=== PATIENT | male | born 1955 | race Hispanic/Latino ===

== ENCOUNTER 2019-11-13 11:40 | Emergency (ER) | payer SELFPAY ==
[~2019-11-13] VITALS: Ht 162.6 cm; Wt 56.0 kg
[2019-11-13] MEDS ORDERED: KEFLEX500 M1 PO (13:08)
[2019-11-13] MEDS ORDERED: IBUPROFEN600 MG PO (13:08)
[2019-11-13 13:36] VITALS: BP 167/88
== END 2019-11-13 13:45 | disposition home or self-care (01) | DRG 563 ==
LOC: ED 11:40
DX: S93.401A Sprain of unspecified ligament of right ankle, initial encounter (principal); L03.115 Cellulitis of right lower limb; X50.0XXA Overexertion from strenuous movement or load, initial encounter; Y92.009 Unspecified place in unspecified non-institutional (private) residence as the place of occurrence of the external cause

== ENCOUNTER 2019-12-13 19:41 | Observation (INO) | payer SELFPAY ==
[~2019-12-13] VITALS: Ht 162.6 cm; Wt 56.4 kg
[~2019-12-13 19:41] MED LIST: IBUPROFEN600 MG PO; KEFLEX500 M1 PO
[2019-12-13 20:26] LABS: ALKALINE PHOSPHATASE 110 u/l (38-126); BUN 7 mg/dL (8-23); BUN/CREATININE RATIO 11 (12-20 (CALC)); CARBON DIOXIDE 22 mmol/l (22-30); CHLORIDE 94 mmol/l (95-108); CREATININE 0.6 mg/dL (0.7-1.3); GFR > 60 ML/MIN (>=60 (CALC)); GFR FOR AFR.AMER. > 60 ML/MIN (>=60 (CALC)); SGOT/AST 45 u/l (19-48)
[2019-12-13 20:30] LABS: IMMATURE GRANULOCYTES 0.2 % (0.0-5.0); MEAN CELL VOLUME 97.1 fL CALC (80.0-100.0); MEAN CORPUSCULAR HGB 33.1 pG CALC (26.0-32.0); NEUT# 2.29 thou/uL (1.82-7.42); RED BLOOD COUNT 3.84 mill/uL (4.70-6.10); RED CELL DISTRI WIDTH 12.4 % (11.5-15.5)
[2019-12-13 20:33] LABS: HEMATOCRIT 37.3 % (39.0-50.0); HEMOGLOBIN 12.7 g/dl (14.0-18.0)
[2019-12-13 20:42] LABS: ALBUMIN 4.3 g/dL (3.2-5.0); ANION GAP 17 (6-22 (CALC)); BILIRUBIN, TOTAL 0.4 mg/dL (0.0-1.4); SODIUM 129 mmol/l (137-146); TOTAL PROTEIN 7.5 g/dL (6.3-8.2)
[2019-12-13 20:43] LABS: ETHYL ALCOHOL 368 mg/dl (0-30)
[2019-12-14] VITALS (16 sets, daily range): BP systolic 123–146; BP diastolic 60–83
[2019-12-14] MEDS ORDERED: AMOX/K CLAV875 M1 PO (06:40)
[2019-12-14 13:53] LABS: URINE BILIRUBIN - DIPSTICK NEGATIVE (NEGATIVE); URINE BLOOD DIPSTICK NEGATIVE (NEGATIVE); URINE COLOR YELLOW; URINE GLUCOSE - DIPSTICK NEGATIVE (NEGATIVE); URINE KETONE NEGATIVE (NEGATIVE); URINE LEUK ESTERASE NEGATIVE (NEGATIVE); URINE NITRITE - DIPSTICK NEGATIVE (Negative); URINE PROTEIN - DIPSTICK NEGATIVE (NEG-TRACE); URINE SPECIFIC GRAVITY <=1.005; URINE UROBILINOGEN - DIPSTICK 0.2 E.U./dL (0.2)
[2019-12-15] VITALS (8 sets, daily range): BP systolic 133–154; BP diastolic 68–85
[2019-12-15 04:57] LABS: HEMATOCRIT 37.1 % (39.0-50.0); HEMOGLOBIN 12.5 g/dl (14.0-18.0); IMMATURE GRANULOCYTES 0.3 % (0.0-5.0); MEAN CELL VOLUME 97.9 fL CALC (80.0-100.0); MEAN CORPUSCULAR HGB CONC 33.7 g/dL CAL (32.0-36.0); NEUT# 4.99 thou/uL (1.82-7.42); RED BLOOD COUNT 3.79 mill/uL (4.70-6.10); RED CELL DISTRI WIDTH 12.7 % (11.5-15.5)
[2019-12-15 05:35] LABS: ALBUMIN 3.6 g/dL (3.2-5.0); ALKALINE PHOSPHATASE 124 u/l (38-126); BUN 6 mg/dL (8-23); BUN/CREATININE RATIO 12 (12-20 (CALC)); CALCULATED LDLCHOLESTEROL 58 mg/dL (62-129 (CALC)); CARBON DIOXIDE 26 mmol/l (22-30); CHLORIDE 104 mmol/l (95-108); CHOLESTEROL HDL RATIO 1.8 (<4.4 (CALC)); CREATININE 0.5 mg/dL (0.7-1.3); GFR > 60 ML/MIN (>=60 (CALC)); GFR FOR AFR.AMER. > 60 ML/MIN (>=60 (CALC)); HDL CHOLESTEROL 93 mg/dL (>=40); POTASSIUM 3.5 mmol/l (3.5-5.1); SGOT/AST 35 u/l (19-48); TOTAL CHOLESTEROL 168 mg/dl (0-199); TOTAL PROTEIN 6.7 g/dL (6.3-8.2); TOTAL TRIGLYCERIDES 88 mg/dl (30-149); VLDL CHOLESTROL 18 mg/dl (4-45 (CALC))
[2019-12-15 05:43] LABS: ANION GAP 11 (6-22 (CALC)); BILIRUBIN, TOTAL 0.9 mg/dL (0.0-1.4); MAGNESIUM 1.9 mg/dL (1.6-2.3); SODIUM 137 mmol/l (137-146)
[2019-12-16] VITALS (7 sets, daily range): BP systolic 137–177; BP diastolic 78–91
[2019-12-16] MEDS ORDERED: ASPIRIN ADULT L81 M2 PO (08:23)
[2019-12-16] MEDS ORDERED: METOPROLOL SUCC50 MG PO (08:23)
== END 2019-12-16 12:35 | disposition home or self-care (01) | DRG 310 ==
LOC: ED 19:41 → ED-I 12-14 08:11 → ED 12-14 08:28 → ICU 12-14 08:29
PROVIDERS: Nurse Practitioner; ADMIT Internal Medicine; ATTEND Internal Medicine
PROC: 0HQ1XZZ Repair Face Skin, External Approach (ICD-10-PCS; principal; 2019-12-13)
DX: I48.0 Paroxysmal atrial fibrillation (principal); S02.2XXA Fracture of nasal bones, initial encounter for closed fracture; S01.21XA Laceration without foreign body of nose, initial encounter; S50.311A Abrasion of right elbow, initial encounter; F10.229 Alcohol dependence with intoxication, unspecified; I10 Essential (primary) hypertension; Y90.8 Blood alcohol level of 240 mg/100 ml or more; Y92.512 Supermarket, store or market as the place of occurrence of the external cause; W01.0XXA Fall on same level from slipping, tripping and stumbling without subsequent striking against object, initial encounter; Z20.828 Contact with and (suspected) exposure to other viral communicable diseases
CPT/HCPCS: J1650; J3475

== ENCOUNTER 2019-12-24 10:32 | Emergency (ER) | payer SELFPAY ==
[~2019-12-24] VITALS: Ht 167.6 cm; Wt 90.0 kg
[~2019-12-24 10:32] MED LIST changes: +AMOX/K CLAV875 M1 PO; +ASPIRIN ADULT L81 M2 PO; +METOPROLOL SUCC50 MG PO
[2019-12-24 11:45] VITALS: BP 112/64
== END 2019-12-24 11:45 | disposition home or self-care (01) | DRG 950 ==
LOC: ED 10:32
DX: S01.21XD Laceration without foreign body of nose, subsequent encounter (principal); X58.XXXD Exposure to other specified factors, subsequent encounter; I10 Essential (primary) hypertension

== ENCOUNTER 2020-04-09 13:37 | Emergency (ER) | payer SELFPAY ==
[~2020-04-09] VITALS: Ht 167.6 cm; Wt 75.0 kg
[2020-04-09 15:00] LABS: HEMATOCRIT 34.3 % (39.0-50.0); HEMOGLOBIN 11.7 g/dl (14.0-18.0); MEAN CELL VOLUME 97.4 fL CALC (80.0-100.0); MEAN CORPUSCULAR HGB 33.2 pG CALC (26.0-32.0); MEAN CORPUSCULAR HGB CONC 34.1 g/dL CAL (32.0-36.0); NEUT# 2.68 thou/uL (1.82-7.42); RED BLOOD COUNT 3.52 mill/uL (4.70-6.10); RED CELL DISTRI WIDTH 13.5 % (11.5-15.5)
[2020-04-09 15:24] LABS: ALKALINE PHOSPHATASE 83 u/l (38-126); BILIRUBIN, TOTAL 0.6 mg/dL (0.0-1.4); BUN 4 mg/dL (8-23); BUN/CREATININE RATIO 6 (12-20 (CALC)); CARBON DIOXIDE 24 mmol/l (22-30); CREATININE 0.6 mg/dL (0.7-1.3); ETHYL ALCOHOL 296 mg/dl (0-30); GFR > 60 ML/MIN (>=60 (CALC)); GFR FOR AFR.AMER. > 60 ML/MIN (>=60 (CALC)); POTASSIUM 3.7 mmol/l (3.5-5.1); SGOT/AST 46 u/l (19-48); TOTAL PROTEIN 7.8 g/dL (6.3-8.2)
[2020-04-09 15:34] LABS: ALBUMIN 4.4 g/dL (3.2-5.0); ANION GAP 17 (6-22 (CALC)); CHLORIDE 90 mmol/l (95-108); SODIUM 127 mmol/l (137-146)
[2020-04-09] MEDS ORDERED: AMOX/K CLAV875 M1 PO (18:45)
[2020-04-09 23:45] VITALS: BP 133/69
== END 2020-04-09 23:45 | disposition home or self-care (01) | DRG 156 ==
LOC: ED 13:37
PROC: 0HQ1XZZ Repair Face Skin, External Approach (ICD-10-PCS; principal; 2020-04-09)
DX: S01.21XA Laceration without foreign body of nose, initial encounter (principal); S02.2XXA Fracture of nasal bones, initial encounter for closed fracture; F10.129 Alcohol abuse with intoxication, unspecified; I10 Essential (primary) hypertension; W10.9XXA Fall (on) (from) unspecified stairs and steps, initial encounter; Y92.009 Unspecified place in unspecified non-institutional (private) residence as the place of occurrence of the external cause

== ENCOUNTER 2021-06-08 17:45 | Emergency (ER) | payer SELFPAY ==
[~2021-06-08] VITALS: Ht 167.6 cm; Wt 54.0 kg
[2021-06-08] VITALS (12 sets, daily range): BP systolic 108–150; BP diastolic 63–82
[2021-06-08 20:03] LABS: HEMATOCRIT 33.5 % (39.0-50.0); MEAN CELL VOLUME 98.5 fL CALC (80.0-100.0); MEAN CORPUSCULAR HGB 32.4 pG CALC (26.0-32.0); MEAN CORPUSCULAR HGB CONC 32.8 g/dL CAL (32.0-36.0); NEUT# 3.06 thou/uL (1.82-7.42); RED BLOOD COUNT 3.4 mill/uL (4.70-6.10); RED CELL DISTRI WIDTH 13.7 % (11.5-15.5)
[2021-06-08 20:08] LABS: ALBUMIN 4.1 g/dL (3.2-5.0); ALKALINE PHOSPHATASE 90 u/l (38-126); AMYLASE 98 u/l (30-110); ANION GAP 13 (6-22 (CALC)); BILIRUBIN, TOTAL 0.3 mg/dL (0.0-1.4); BUN 8 mg/dL (8-23); BUN/CREATININE RATIO 11 (12-20 (CALC)); CARBON DIOXIDE 21 mmol/l (22-30); CHLORIDE 100 mmol/l (95-108); CREATININE 0.7 mg/dL (0.7-1.3); GFR > 60 ML/MIN (>=60 (CALC)); GFR FOR AFR.AMER. > 60 ML/MIN (>=60 (CALC)); LIPASE 110 u/l (23-300); POTASSIUM 3.5 mmol/l (3.5-5.1); SGOT/AST 35 u/l (19-48); SODIUM 131 mmol/l (137-146); TOTAL PROTEIN 7.1 g/dL (6.3-8.2)
[2021-06-08 20:20] LABS: MYOGLOBIN 104 ng/mL (0 - 121)
[2021-06-09 03:23] LABS: URINE BILIRUBIN - DIPSTICK NEGATIVE (NEGATIVE); URINE BLOOD DIPSTICK NEGATIVE (NEGATIVE); URINE COLOR YELLOW; URINE GLUCOSE - DIPSTICK NEGATIVE (NEGATIVE); URINE KETONE NEGATIVE (NEGATIVE); URINE LEUK ESTERASE NEGATIVE (NEGATIVE); URINE PH 5.5 (4.5-8.0); URINE PROTEIN - DIPSTICK NEGATIVE (NEG-TRACE); URINE SPECIFIC GRAVITY <=1.005; URINE UROBILINOGEN - DIPSTICK 0.2 E.U./dL (0.2)
[2021-06-09 03:25] LABS: URINE NITRITE - DIPSTICK NEGATIVE (Negative)
[2021-06-09] MEDS ORDERED: KEFLEX500 MG PO (04:16)
== END 2021-06-09 07:09 | disposition home or self-care (01) | DRG 605 ==
LOC: ED 17:45
PROVIDERS: Emergency Medicine
PROC: 0HQ1XZZ Repair Face Skin, External Approach (ICD-10-PCS; principal; 2021-06-08)
DX: S01.81XA Laceration without foreign body of other part of head, initial encounter (principal); S01.21XA Laceration without foreign body of nose, initial encounter; S02.2XXA Fracture of nasal bones, initial encounter for closed fracture; F10.129 Alcohol abuse with intoxication, unspecified; I10 Essential (primary) hypertension; W01.0XXA Fall on same level from slipping, tripping and stumbling without subsequent striking against object, initial encounter

== ENCOUNTER 2021-07-08 12:10 | Emergency (ER) | payer SELFPAY ==
[~2021-07-08] VITALS: Ht 167.6 cm; Wt 59.0 kg
[~2021-07-08 12:10] MED LIST changes: +KEFLEX500 MG PO
[2021-07-08 12:23] VITALS: BP 156/90
[2021-07-08 12:30] VITALS: BP 140/81
[2021-07-08 12:35] VITALS: BP 140/81
== END 2021-07-08 12:42 | disposition home or self-care (01) | DRG 950 ==
LOC: ED 12:10
DX: S01.81XD Laceration without foreign body of other part of head, subsequent encounter (principal); S02.2XXD Fracture of nasal bones, subsequent encounter for fracture with routine healing; X58.XXXD Exposure to other specified factors, subsequent encounter

== ENCOUNTER 2021-12-09 19:22 | Emergency (ER) | payer SELFPAY ==
[~2021-12-09] VITALS: Ht 167.6 cm; Wt 65.0 kg
[2021-12-09 20:16] LABS: HEMATOCRIT 32.3 % (39.0-50.0); HEMOGLOBIN 11.2 g/dl (14.0-18.0); IMMATURE GRANULOCYTES 0.2 % (0.0-5.0); MEAN CORPUSCULAR HGB 33.6 pG CALC (26.0-32.0); MEAN CORPUSCULAR HGB CONC 34.7 g/dL CAL (32.0-36.0); NEUT# 2.55 thou/uL (1.82-7.42); RED BLOOD COUNT 3.33 mill/uL (4.70-6.10); RED CELL DISTRI WIDTH 12.4 % (11.5-15.5)
[2021-12-09 20:17] LABS: URINE BILIRUBIN - DIPSTICK NEGATIVE (NEGATIVE); URINE BLOOD DIPSTICK NEGATIVE (NEGATIVE); URINE COLOR YELLOW; URINE GLUCOSE - DIPSTICK NEGATIVE (NEGATIVE); URINE KETONE NEGATIVE (NEGATIVE); URINE LEUK ESTERASE NEGATIVE (NEGATIVE); URINE PH 5.5 (4.5-8.0); URINE PROTEIN - DIPSTICK NEGATIVE (NEG-TRACE); URINE UROBILINOGEN - DIPSTICK 0.2 E.U./dL (0.2)
[2021-12-09 20:27] LABS: ALBUMIN 4.1 g/dL (3.2-5.0); ALKALINE PHOSPHATASE 99 u/l (38-126); AMYLASE 118 u/l (30-110); ANION GAP 15 (6-22 (CALC)); BILIRUBIN, TOTAL 0.4 mg/dL (0.0-1.4); BUN 4 mg/dL (8-23); BUN/CREATININE RATIO 7 (12-20 (CALC)); CARBON DIOXIDE 21 mmol/l (22-30); CHLORIDE 94 mmol/l (95-108); CREATININE 0.6 mg/dL (0.7-1.3); ETHYL ALCOHOL 281 mg/dl (0-30); GFR FOR AFR.AMER. > 60 ML/MIN (>=60 (CALC)); GFR OTHER RACES > 60 ML/MIN (>=60 (CALC)); LIPASE 104 u/l (23-300); POTASSIUM 3.7 mmol/l (3.5-5.1); SODIUM 126 mmol/l (137-146); TOTAL PROTEIN 7.4 g/dL (6.3-8.2)
[2021-12-09 20:35] LABS: SGOT/AST 65 u/l (19-48); URINE NITRITE - DIPSTICK NEGATIVE (Negative)
[2021-12-09 20:38] LABS: MYOGLOBIN 269 ng/mL (0 - 121)
[2021-12-10 05:31] VITALS: BP 149/77
== END 2021-12-10 09:15 | disposition still patient (30) | DRG 605 ==
LOC: ED 19:22
PROVIDERS: Emergency Medicine
DX: S01.01XA Laceration without foreign body of scalp, initial encounter (principal); W01.0XXA Fall on same level from slipping, tripping and stumbling without subsequent striking against object, initial encounter; F10.129 Alcohol abuse with intoxication, unspecified

== ENCOUNTER 2021-12-19 10:58 | Emergency (ER) | payer SELFPAY ==
[~2021-12-19] VITALS: Ht 167.6 cm; Wt 58.0 kg
[2021-12-19 11:54] VITALS: BP 165/90
== END 2021-12-19 11:55 | disposition home or self-care (01) | DRG 950 ==
LOC: ED 10:58
DX: S01.81XD Laceration without foreign body of other part of head, subsequent encounter (principal); X58.XXXD Exposure to other specified factors, subsequent encounter; I10 Essential (primary) hypertension

== ENCOUNTER 2022-03-08 19:51 | Emergency (ER) | payer SELFPAY ==
[~2022-03-08] VITALS: Ht 167.6 cm; Wt 61.0 kg
[2022-03-08] MEDS ORDERED: GENTAMICIN SULF5 ML OD (20:28)
[2022-03-08 21:06] VITALS: BP 191/95
== END 2022-03-08 21:23 | disposition home or self-care (01) | DRG 125 ==
LOC: ED 19:51
DX: S05.01XA Injury of conjunctiva and corneal abrasion without foreign body, right eye, initial encounter (principal); I10 Essential (primary) hypertension; W22.8XXA Striking against or struck by other objects, initial encounter; Y93.89 Activity, other specified

== ENCOUNTER 2022-03-25 19:12 | Emergency (ER) | payer SELFPAY ==
[~2022-03-25] VITALS: Ht 167.6 cm; Wt 56.8 kg
[~2022-03-25 19:12] MED LIST changes: +GENTAMICIN SULF5 ML OD
[2022-03-25] MEDS ORDERED: GENTAMICIN SULF5 ML OD (20:54)
[2022-03-25 21:09] VITALS: BP 146/81
== END 2022-03-25 21:18 | disposition home or self-care (01) | DRG 125 ==
LOC: ED 19:12
DX: S05.01XA Injury of conjunctiva and corneal abrasion without foreign body, right eye, initial encounter (principal); X58.XXXA Exposure to other specified factors, initial encounter; I10 Essential (primary) hypertension